=== PATIENT | male | born 2000 | race Caucasian/White ===

== ENCOUNTER 2022-12-13 00:56 | Emergency (ER) | payer MEDICAID ==
[~2022-12-13] VITALS: Ht 170.2 cm; Wt 63.0 kg
--- NOTE | 2022-12-13 01:06 | NUR ---
Bibself c/o left ankle pain s/p fell off while skate boarding 03/30 ps. Pt A/ox4. Tolerating R/A well with no resp distress. Safety measures in place.
[2022-12-13] MEDS ORDERED: IBUPROFEN 600 MG TABLET PO ONE (01:30)
--- NOTE | 2022-12-13 01:42 | NUR ---
bulk mail technician at pt's bedside
[2022-12-13] MEDS ORDERED: IBUPROFEN 600 MG TABLET ONE (01:44)
[2022-12-13] MEDS: HYDROCODONE/APAP 10/325MG TABLET PO ONE ×2 (01:47→02:59)
--- NOTE | 2022-12-13 02:16 | NUR ---
PT TAKEN TO CT VIA W/C
[2022-12-13] MEDS ORDERED: HYDROCODONE/APAP 10/325MG TABLET ONE (02:56)
--- NOTE | 2022-12-13 07:38 | NUR ---
REPORT GIVEN TO KAILEY ABEBE
[2022-12-13] MEDS ORDERED: HYDR-4303 PO (08:01)
--- NOTE | 2022-12-13 08:15 | NUR ---
Patient discharged to home in stable condition. Written and verbal after care instructions given. Patient verbalizes understanding of instruction.
--- NOTE | 2022-12-13 08:16 | NUR ---
IV removed. Catheter intact and site benign. Pressure and 4x4 applied to site. No bleeding noted.
[2022-12-13 08:17] VITALS: BP 112/72; TEMP 98.2
== END 2022-12-13 08:50 | disposition home or self-care (01) ==
LOC: ER 01:02 → MED 07:32 → UNDOADMIN 07:32 → ER 08:50
DX: S92.002A Unspecified fracture of left calcaneus, initial encounter for closed fracture (principal); V00.131A Fall from skateboard, initial encounter; Y93.51 Activity, roller skating (inline) and skateboarding; Y92.89 Other specified places as the place of occurrence of the external cause; Y99.8 Other external cause status
CPT/HCPCS: 73610-TC; 73630-TC; 73650-TC; 73700-TC; 87081-TC